=== PATIENT | male | born 1950 | race Caucasian/White ===

== ENCOUNTER → 2017-05-30 14:30 | Outpatient (CLI) | payer OTHER, SELFPAY ==
--- NOTE | 2017-05-30 14:35 | RAD_ITS ---
STUDY: X-RAY - LEFT HAND REASON FOR EXAM: Male, 66 years old. Pain and nodule at base of first MC TECHNIQUE: 3 view(s) of the hand. COMPARISON: None. FINDINGS: Normal radiocarpal articulation. Normal distal radioulnar joint. Normal visualized carpal bones. Normal carpal articulations Normal carpometacarpal articulation of the thumb. Normal second through fifth carpometacarpal joints. Normal metacarpi. Normal metacarpophalangeal joint of the thumb. Normal interphalangeal joint of the thumb. Normal proximal and distal phalanges of the thumb. Normal metacarpophalangeal joints of the second through fifth fingers. Normal proximal and distal interphalangeal joints of the second through fifth fingers. Fracture of the fourth tuft is noted. The soft tissue structures are unremarkable. RAD/Hand Min 3 Views IMPRESSION: Fracture of the fourth tuft. No other osseous abnormality. Electronically Signed: Jamie Nunez MD at 1:15 EDT Tel , Service support ,
== END ==
PROVIDERS: Family Provider Preventive Medicine Occupational Medicine; PCP Preventive Medicine Occupational Medicine; Visit Provider Physician Assistant
DX: M79.642 Pain in left hand (principal)
CPT/HCPCS: 73130

== ENCOUNTER 2021-06-12 10:49 | Emergency (ER) | payer MEDICARE, SELFPAY ==
[2021-06-12 10:50] VITALS: BP 164/107; PULSE 62; RESP 16; TEMP 35.9; O2SAT 100; BMI 25.1
--- NOTE | 2021-06-12 11:06 | CT_ITS ---
INDICATION: abdominal pain EXAMINATION: CT ABDOMEN AND PELVIS WITHOUT CONTRAST - CT Abdomen And Pelvis W/O Contrast Injection TECHNIQUE: Helically acquired images were obtained of the abdomen and pelvis without oral or IV contrast. A radiation dose optimization technique was used for this scan. IV Contrast dosage and agent: None. Oral contrast: None. COMPARISON: None. FINDINGS: LOWER CHEST: Lung bases are clear. No cardiomegaly or pericardial effusion. LIVER: Homogeneous. No focal mass. GALLBLADDER AND BILIARY TREE: No calcified gallstones. No gallbladder distension or wall edema. No intra- or extrahepatic biliary ductal dilation. PANCREAS: No focal cystic or solid mass. SPLEEN: Normal size without focal cystic or solid mass. ADRENAL GLANDS: No nodules. KIDNEYS AND URETERS: Normal renal size and position. No hydronephrosis. PERITONEUM: No ascites or free air. No other fluid collection. BOWEL: Small type I hiatus hernia is seen. The appendix is visualized and is unremarkable.. No stomach or bowel distension. No focal inflammatory change. LYMPH NODES: No enlarged mesenteric or retroperitoneal lymph nodes. VESSELS: Aorta is non-dilated. URINARY BLADDER: Unremarkable. REPRODUCTIVE ORGANS: Mild prominence of the prostate gland is seen. Scattered calcifications visualized in the scrotal sac bilaterally. Fluid visualized within the right scrotal sac consistent with hydrocele. ABDOMINAL WALL: No discrete abdominal or pelvic wall hernia. BONES: Degenerative bone changes visualized, loss of intervertebral disc height visualized most prominent at L4-L5 and to a lesser extent at L5-S1. CT/Abdomen/Pelvis without Cont IMPRESSION: Right hydrocele. Degenerative changes of the lumbar spine. No evidence of acute intra-abdominal/Pelvic pathology is seen. Electronically Signed: Tray Ford MD at 12:12 EDT ,
--- NOTE | 2021-06-12 11:07 | EKG12_ITS ---
Test Reason : CHEST PAIN Blood Pressure : / mmHG Vent. Rate : 065 BPM Atrial Rate : 065 BPM P-R Int : 174 ms QRS Dur : 104 ms QT Int : 460 ms P-R-T Axes : 056 -24 008 degrees QTc Int : 478 ms Normal sinus rhythm Normal ECG Confirmed by KALEE BRICEÑO, MICHELE ([id number]), editorial director VESTA HAMMONDS ([id number]) on 06/13/2021 8:57:14 AM Referred By: COLT Confirmed By:MICHELE GRANDA MD
[2021-06-12] MEDS: Morphine 4 MG/ML Syringe IV (11:30)
[2021-06-12] MEDS: Ondansetron 4 MG/2 ML Vial IV (11:30)
[2021-06-12] MEDS: Famotidine 200 MG/20 ML MDV 20 MG in 0.9% Normal Saline (Pres. free 8 ML 300 MG IV (11:48)
[2021-06-12 12:09] LABS: Absolute Lymphocyte Count 1.79 X10^3/uL (0.83-4.51); Absolute Neutrophil Count 10.6 X10^3/uL (2.0-7.7); Basophil# 0.04 X10^3/uL; Basophil% 0.3 % (0-1); Eosinophil# 0.02 X10^3/uL; Eosinophils% 0.2 % (0-5); Hematocrit 44.7 % (40-54); Hemoglobin 15.3 g/dL (13.0-16.5); Lymphocyte # 1.79 X10^3/ul (0.83-4.51); Lymphocyte % 13.8 % (19-41); Mean Corp Hgb Conc 34.2 g/dL (32-36); Mean Corpuscular Hgb 28.2 pg (27.0-32.0); Mean Corpuscular Volume 82.5 fL (80-94); Mean Platelet Vol. 10.7 fl (6.2-12.0); Monocyte# 0.49 X10^3/uL; Monocyte% 3.8 % (0-10); NRBC Flagged by Analyzer 0 % (0-5); Neutrophil # 10.56 X10^3/uL (2.7-7.7); Neutrophil % 81.3 % (47-70); POSITIVE COUNT YES; RBC Distribution Width CV 13.2 % (11.6-14.6); RBC Distribution Width SD 39.2 fl (35.1-43.9); Red Blood Count 5.42 M/mm3 (4.6-6.2)
[2021-06-12 12:13] LABS: ALB/GLOB Ratio 1.1 RATIO (0.9-2.4); AST(SGOT) 21 U/L (15-37); Alanine Aminotransfer ALT/SGPT 42 U/L (16-61); Albumin, Serum 3.7 g/dL (3.2-5.0); Alkaline Phosphatase 92 U/L (45-117); Anion Gap 7 (5-15); BUN 15 mg/dL (7-18); BUN/Creat Ratio 14.6 RATIO (10-20); Calcium,Total 9.2 mg/dL (8.5-10.1); Chloride 107 mmol/L (98-107); Creatinine, Serum 1.03 mg/dL (0.70-1.30); EST Glomerular Filtration Rate 76 mL/min (>60); Est Glom Filt Rate - Afr Amer 92 mL/min (>60); Estimated Creatinine Clearance 68.64 ml/min; Globulin 3.4 g/dL (2.2-4.2); Glucose 124 mg/dL (74-106); Lipase 102 U/L (73-393); Protein, Total 7.1 g/dL (6.4-8.2); Sodium Level 139 mmol/L (136-145)
[2021-06-12] MEDS: Mag Hydrox/Al Hydrox/Simeth 30 ML UDC PO (12:41)
[2021-06-12 12:55] LABS: Differential Indicated SCAN CRITERIA MET
[2021-06-12 13:00] LABS: Platelet Estimate ADEQUATE (ADEQ)
--- NOTE | 2021-06-12 13:12 | EDS_ITS ---
HPI History of Present Illness Chief Complaint: Abd Pain Narrative Narrative: Patient presents with epigastric pain, it started earlier today. He feels a burning and pressure in his stomach. He has no right upper quadrant pain. He has no back pain he has no lower abdominal pain he has no chest pain or shortness of breath. No fever or chills. He has had gastritis in the past and this feels similar. He does have an appointment with his GI doctor in the next 3 months. PFSH PFS Medical History GERD (gastroesophageal reflux disease) Hypercholesteremia Hypertension Home Medications aspirin 81 mg tablet,delayed release 81 mg PO DAILY 05/30/17 [History Last Taken Unknown] atorvastatin 20 mg tablet 20 mg PO DAILY 90 Days #90 05/30/17 [History Last Taken Unknown] famotidine [Pepcid] 40 mg PO DAILY #20 tab 06/12/21 [Rx Last Taken Unknown] metoprolol tartrate 12.5 mg PO BID 06/12/21 [History Last Taken Unknown] oxycodone-acetaminophen [Percocet] 1 tab PO Q6H 3 Days #12 tab 06/12/21 [Rx Last Taken Unknown] pantoprazole 40 mg PO DAILY 06/12/21 [History Last Taken Unknown] sucralfate [Carafate] 1 g PO BID #20 tab 06/12/21 [Rx Last Taken Unknown] Allergy/AdvReac Type Severity Reaction Status Date / Time Penicillins [PCN] Allergy Hives Verified 06/12/21 10:50 Surgical History History of eye surgery Social History Smoking Status: Never smoker alcohol intake: current alcohol intake frequency: a few times a month ROS ROS ED ROS Narrative Past medical history: Reviewed Medications: Reviewed Social history: Noncontributory Review of systems: All systems negative except as indicated General: No fever Eyes: No visual changes ENT: No upper airway congestion, normal voice Neck: No neck pain Cardiovascular: No chest pain Respiratory: No shortness of breath or cough Gastrointestinal: As in HPI Genitourinary: No dysuria Musculoskeletal: Denies myalgias no difficulty with ambulation Skin: No rash Neurological: No memory loss, confusion or any focal weakness Psych: No recent behavioral changes Hematologic: No easy bleeding or easy bruising EXAM Physical Exam Narrative Exam Narrative: Physical exam General: Patient appears uncomfortable Head: Normocephalic, Atraumatic Eyes: Conjunctiva not pale ENT: Moist mucous membranes Neck: Supple, Nontender, No lymphadenopathy Cardiovascular: Regular rate, Regular rhythm Respiratory: No distress, CTA bilaterally Abdomen: Soft, there is epigastric tenderness to palpation. There is no guarding or rebound. There is no right upper quadrant and a negative Manzo's. No lower abdominal pain. Back: Nontender, Normal Inspection. Negative for: CVA tenderness Extremities: Nontender, No edema Skin: Normal color, No rash Neurological: Alert, Normal Strength, Normal Sensation Psychological: Normal affect Const Vital Signs: 06/12/21 10:50 Temperature 96.7 F L Temperature Source Temporal Pulse Rate 62 Respiratory Rate 16 Blood Pressure 164/107 H Blood Pressure Mean 126 Pulse Ox 100 Oxygen Delivery Method Room Air MDM MDM MDM Narrative Medical decision making narrative: Patient is an unremarkable emergency department work-up he appears well and he improved with antacids. I will discharge him in stable condition, he on a PPI, I will add Carafate and Pepcid as well as a small amount of analgesia. Lab Data Labs: Laboratory Results - last 24 hr 06/12/21 06/12/21 11:47 11:47 WBC 13.0 H RBC 5.42 Hgb 15.3 Hct 44.7 MCV 82.5 MCH 28.2 MCHC 34.2 RDW Std Deviation 39.2 RDW Coeff of Francesca 13.2 Plt Count MPV 10.7 Immature Gran % (Auto) 0.600 Neut % (Auto) 81.3 H Lymph % (Auto) 13.8 L [place] % (Auto) 3.8 Eos % (Auto) 0.2 Baso % (Auto) 0.3 Absolute Neuts (auto) 10.6 H Absolute Lymphs (auto) 1.79 Nucleated RBC % 0 Platelet Estimate ADEQUATE Sodium 139 Potassium 4.0 Chloride 107 Carbon Dioxide 25.0 Anion Gap 7 BUN 15 Creatinine 1.03 Estim Creat Clear Calc 68.64 Est GFR (MDRD) Af Amer 92 Est GFR (MDRD) Non-Af 76 BUN/Creatinine Ratio 14.6 Glucose 124 H Calcium 9.2 Total Bilirubin 0.60 AST 21 ALT 42 Alkaline Phosphatase 92 Total Protein 7.1 Albumin 3.7 Globulin 3.4 Albumin/Globulin Ratio 1.1 Lipase 102 Radiography Diagnostic Testing: Clinical Impression(s) from Imaging Studies Abdomen/Pelvis CT 06/12/21 11:06 IMPRESSION: Right hydrocele. Degenerative changes of the lumbar spine. No evidence of acute intra-abdominal/Pelvic pathology is seen. Electronically Signed: Tray Ford MD at 12:12 EDT , Discharge Plan Triage Chief Complaint: Abd Pain ED Provider: Marc Guzmán Dx/Rx/DC Orders Clinical Impression: Acute epigastric pain, Gastritis Prescriptions: New oxycodone-acetaminophen [Percocet] 5-325 mg tablet 1 tab PO Q6H 3 Days Qty: 12 RF: 0 sucralfate [Carafate] 1 gram tablet 1 g PO BID Qty: 20 RF: 0 famotidine [Pepcid] 40 mg tablet 40 mg PO DAILY Qty: 20 RF: 0 No Action atorvastatin 20 mg tablet 20 mg PO DAILY 90 Days Qty: 90 RF: 0 aspirin [Adult Low Dose Aspirin] 81 mg tablet,delayed release (DR/EC) 81 mg PO DAILY RF: 0 pantoprazole 40 mg tablet,delayed release (DR/EC) 40 mg PO DAILY RF: 0 metoprolol tartrate 25 mg tablet 12.5 mg PO BID RF: 0 Primary Care Provider: Heladio Freeman Referrals: Heladio Freeman DO [Primary Care Provider] - 3-5 Days Disposition Disposition: Home, Self Care
[2021-06-12] MEDS: oxyCODONE 5 MG Tablet PO (13:32)
== END 2021-06-12 13:38 | disposition home or self-care (01) ==
PROVIDERS: Emergency Provider Emergency Medicine; PCP Preventive Medicine Occupational Medicine; Visit Provider Emergency Medicine
DX: K29.70 Gastritis, unspecified, without bleeding (principal); I10 Essential (primary) hypertension; E78.00 Pure hypercholesterolemia, unspecified; K21.9 Gastro-esophageal reflux disease without esophagitis; Z79.82 Long term (current) use of aspirin; Z79.899 Other long term (current) drug therapy
CPT/HCPCS: 36415; 74176; 80053; 83690; 85025; 93005; 96365; 96375; 99283; J7030; A4216; J2405; J3490